=== PATIENT | male | born 2000 | race Caucasian/White ===

== ENCOUNTER 2020-12-22 07:54 | Emergency (ER) | payer OTHER, SELFPAY ==
[2020-12-22 08:17] VITALS: BP 136/80; PULSE 79; RESP 16; TEMP 36.8; O2SAT 98; BMI 18.3
--- NOTE | 2020-12-22 08:50 | ED_ITS ---
HPI - Dental/Oral General Chief complaint: Dental/Oral Stated complaint: Dental Pain Time Seen by Provider: 12/22/20 08:44 Source: patient Mode of arrival: ambulatory History of Present Illness HPI Narrative: 20-year-old male with No significant past medical history presenting to the ED complaining right-sided upper tooth pain x a few weeks. Admits to seeing dentist recently is currently on ibuprofen 600 mg and amoxicillin, however reports pain increase/worsening prevent him from sleeping. Denies fever, chills, difficulty swelling, oral swelling MD Complaint: tooth pain Related Data Previous Rx's Medication Instructions Recorded acetaminophen-codeine 1 tab PO Q8H PRN 3 Days #7 tab 12/22/20 lidocaine HCl [Lidocaine Viscous] 1 appl MUCOUS MEMBRANE BID PRN 12/22/20 #100 ml Allergies Allergy/AdvReac Type Severity Reaction Status Date / Time No Known Allergies Allergy Verified 12/22/20 08:46 Review of Systems Review of Systems: Constitutional: No Weight loss, No Fever, No Chills ENT/Mouth: No Ear Pain, No Nasal Congestion, No Sinus Pain, No Hoarseness, No sore throat, No Rhinorrhea, No Swallowing Difficulty, + dental pain Cardiovascular: No Chest Pain, No SOB Respiratory: No Cough Skin: No Skin Lesions, No rash Yes all other systems are reviewed and are negative PMFSH Past Medical History Attestation statement: The following information was validated with the patient. Social History Social History Advance Directives: No Advance Directives Information Provided: No Physical Exam Vital Signs: Vital Signs: Last Vital Signs Temp 98.3 F 12/22/20 08:17 Pulse 79 12/22/20 08:17 Resp 16 12/22/20 08:17 BP 136/80 12/22/20 08:17 Pulse Ox 98 12/22/20 08:17 Body Mass Index 18.3 Const: General: cooperative, healthy appearing and no acute distress Orientation/consciousness: patient oriented x3 Limitations: no limitations HENMT: Other: Right upper 2nd molar tooth broken. No evidence of dry socket. No gingivitis, erythema/swelling, fluctuance or induration. Head: Yes normal to inspection Ears: hearing grossly normal bilaterally and TM's normal bilateral ly General nose exam: Normal external nose present and Normal nares present Face and sinus: Yes normal facial exam Mouth: Normal oral and palatal mucosa present Throat: Yes posterior oropharynx normal and Yes uvula midline Eyes: General: appearance normal, both eyes and all related structures EOM: EOMs intact bilaterally Neck: Neck: Yes normal visual inspection Skin: Rashes: no rashes Wounds: no wounds Neuro: General: patient oriented x3 Gait exam (Neuro): Normal gait present Extrem: General: Yes normal to inspection MDM - Dental/Oral MDM Narrative Medical decision making narrative: On exam VSS, NAD/well-appearing, no evidence of dental abscess or dry socket at this time. Discussed with patient he needs to follow-up with dentist Discharge Plan Discharge Clinical Impression: Toothache Patient Disposition: Home, Self-Care Instructions: Toothache (ED) Additional Instructions: You have broken tooth. You need to follow-up with a dentist. Continue taking ibuprofen at home. You may apply ice to her face. Viscous lidocaine is an numbing liquid, use as prescribed. Tylenol with codeine is an opiate pain medication, take only when pain is severe for the next 3 days. If he develops fever, chills, drainage from to return to the ED Prescriptions: New Lidocaine Viscous 2 % solution 1 appl mucous membrane BID PRN (Reason: pain) Qty: 100 RF: 0 acetaminophen-codeine 300-30 mg tablet 1 tab PO Q8H PRN (Reason: pain) 3 Days Qty: 7 RF: 0 Referrals: James Jeter DMD [Dentist] - 2 days Stand Alone Forms: Work/School Release Interventions: ED Discharge Assessment Last Done: 12/22/20 09:09 Discharge Date/Time: 12/22/20 09:11
== END 2020-12-22 09:11 | disposition home or self-care (01) ==
PROVIDERS: Emergency Provider Emergency Medicine
DX: K08.89 Other specified disorders of teeth and supporting structures (principal)
CPT/HCPCS: 99282; 99283

== ENCOUNTER 2023-08-05 17:12 | Emergency (ER) | payer OTHER, SELFPAY ==
[2023-08-05 17:48] VITALS: BP 117/100; PULSE 70; RESP 18; TEMP 36.8; O2SAT 98; BMI 20.8
--- NOTE | 2023-08-05 17:50 | ED_ITS ---
HPI - Eye Problem General Chief complaint: Eye Problems Stated complaint: right eyed redness x2 days Time Seen by Provider: 08/05/23 17:56 Source: patient Mode of arrival: ambulatory Limitations: no limitations History of Present Illness HPI Narrative: 23-year-old male presents to the ER for evaluation of right eye redness, swelling, discharge and crusting for the last 2 days. He states he had a few small pustules on the right upper eyelid and lateral eye a couple of days ago. He tried using a hot compress today with no improvement. Was crusting with yellow drainage when he woke up this morning. No known sick contacts. No URI symptoms. MD chief complaint: eye pain and eye redness Onset (ago): day(s) (2) Onset description: gradual Duration: constant Location: right eye Eye Symptoms: redness and discharge Place: home Mechanism: none Severity: moderate Related Data Previous Rx's Medication Instructions Recorded acetaminophen 300 mg-codeine 30 mg 1 tab PO Q8H PRN pain 3 days #7 12/22/20 tablet tabs lidocaine HCl 2 % mucosal solution 1 appl mucous membrane BID PRN 12/22/20 (Lidocaine Viscous) pain #100 mL erythromycin 5 mg/gram (0.5 %) eye 0.5 inch ophthalmic (eye) BID 1 08/05/23 ointment week #3.5 grams Allergies Allergy/AdvReac Type Severity Reaction Status Date / Time No Known Allergies Allergy Verified 12/22/20 08:46 Review of Systems Review of Systems: Yes all other systems are reviewed and are negative PMFSH Social History Social History Advance Directives: No Advance Directives Information Provided: Yes Physical Exam Vital Signs: Vital Signs: Last Vital Signs Temp 98.2 F 08/05/23 17:48 Pulse 70 08/05/23 17:48 Resp 18 08/05/23 17:48 BP 117/100 H 08/05/23 17:48 Pulse Ox 98 08/05/23 17:48 O2 Del Method Room Air 08/05/23 17:48 BMI result Body Mass Index 20.8 Appearance: Alert. Oriented X3. No acute distress. HEENT: normocephalic, right upper eyelid with mild swelling. right sclera and conjuctiva are injected w/ clear drainage. EOMI and PERRL bilaterally. CVS: Normal heart rate and rhythm. Pulses normal. Respiratory: No respiratory distress. Skin: Skin warm and dry. Normal skin color. Normal skin turgor. No rashes. Extremities: normal inspection x4, no joint swelling Neuro: Oriented X 3. No motor deficit. No sensory deficit. Medical Decision Making Medical Decision Making [facility] Narrative: 23 yo male presenting with right eye redness and irritation along w/ drainage and some swelling of the upper and lower lids. +crusting discharge. No vision changes or eye pain. exam and clinical presentation most c/w bacterial conjunctivitis. pt counseled on diagnosis and management Differential Diagnosis Differential Diagnoses: The differential diagnosis associated with the presentation includes viral conjunctivitis, bacterial conjunctivitis, covid, other viral syndrome, stye, corneal abrasion Tests considered The following testing was considered but not selected: considered viral studies Prescription Management I considered prescription management with: Pain Medication and Antibiotic Critical Care Time Critical Care Time Critical Care Time: No Discharge Plan Discharge Clinical Impression: Conjunctivitis Patient Disposition: Home, Self-Care Instructions: Conjunctivitis (ED) Additional Instructions: Use warm compresses to the eye several times per day. Use the prescribed antibiotic ointment 2 times a day for 1 week. Take ibuprofen as needed for pain and swelling. If you develop new or worsening symptoms call 911 or come back to the ER for further evaluation. Utilice compresas tibias en los ojos varias veces al d?a. Utilice la [place] antibi?emerson recetada 2 veces al d?a sarahi 1 semana. [place] ibuprofeno seg?n sea necesario para el dolor y la hinchaz?n. Si desarrolla s?ntomas nuevos o que empeoran, llame al 911 o regrese a la jimi de emergencias para marty evaluaci?n adicional. Prescriptions: New erythromycin 5 mg/gram (0.5 %) ointment 0.5 inch ophthalmic (eye) BID 7 Days Qty: 3.5 1RF No Action Lidocaine Viscous 2 % solution 1 appl mucous membrane BID PRN (Reason: pain) Qty: 100 0RF acetaminophen-codeine 300-30 mg tablet 1 tab PO Q8H PRN (Reason: pain) 3 Days Qty: 7 0RF Stand Alone Forms: Work/School Release Print Language: [place]
== END 2023-08-05 19:23 | disposition home or self-care (01) ==
PROVIDERS: Emergency Provider Emergency Medicine
DX: H10.9 Unspecified conjunctivitis (principal)
CPT/HCPCS: 99282; 99283